=== PATIENT | female | born 1995 | race Caucasian/White ===

== ENCOUNTER 2017-09-03 02:23 | Emergency (ER) | payer OTHER ==
[~2017-09-03] VITALS: Ht 162.6 cm; Wt 108.9 kg
[2017-09-03] MEDS ORDERED: HYDROCODONE/APAP 5-325MG TABLET PO ONE (03:45)
--- NOTE | 2017-09-03 03:47 | NUR ---
Patient discharged to home in stable conditon. Written and verbal after care instructions given. Patient verbalizes understanding of instructions.
[2017-09-03] MEDS ORDERED: HYDROCODONE/APAP 5-325MG TABLET ONE (03:55)
== END 2017-09-03 03:49 | disposition home or self-care (01) ==
LOC: ER 02:26
DX: S63.614A Unspecified sprain of right ring finger, initial encounter (principal); I10 Essential (primary) hypertension; Z88.6 Allergy status to analgesic agent; Z88.1 Allergy status to other antibiotic agents; F17.200 Nicotine dependence, unspecified, uncomplicated; W18.30XA Fall on same level, unspecified, initial encounter; Y93.89 Activity, other specified; Y92.89 Other specified places as the place of occurrence of the external cause; Y99.8 Other external cause status
CPT/HCPCS: 73140; 99284; A4663